=== PATIENT | female | born 1985 | race Caucasian/White ===

== ENCOUNTER 2017-08-02 05:32 | Day surgery (SDC) | payer OTHER ==
[~2017-08-02] VITALS: Ht 167.6 cm; Wt 60.3 kg
[2017-08-02] MEDS ORDERED: CLINDAMYCIN 600 MG in DEXTROSE 5% 50 ML IV SCH (07:04)
[2017-08-02] MEDS ORDERED: BUPIVACAINE-MPF 0.25% 30 ML VIAL INJ ONE (07:12)
[2017-08-02] MEDS ORDERED: DESFLURANE 240 ML BTL INH ONE (07:18)
[2017-08-02] MEDS ORDERED: ONDANSETRON 4 MG/2 ML VIAL IVP ONE (07:18)
[2017-08-02] MEDS ORDERED: PROPOFOL 200 MG/20 ML VIAL IV ONE (07:18)
[2017-08-02] MEDS ORDERED: ROCURONIUM 50 MG/5 ML VIAL IV ONE (07:18)
[2017-08-02] MEDS ORDERED: KETOROLAC 30 MG/ML VIAL IVP ONE (07:18)
[2017-08-02] MEDS ORDERED: SUCCINYLCHOLINE CHLORIDE 200 MG/10 ML VIAL IV ONE (07:18)
[2017-08-02] MEDS ORDERED: NEOSTIGMINE 1:1000 10 MG/10 ML VIAL IM ONE (07:18)
[2017-08-02] MEDS ORDERED: GLYCOPYRROLATE 0.2 MG/ML VIAL IV ONE (07:18)
[2017-08-02] MEDS ORDERED: DEXAMETHASONE 4 MG/ML VIAL IVP ONE (07:18)
[2017-08-02] MEDS ORDERED: LIDOCAINE 2% 100 MG/5 ML SYR IVP ONE (07:18)
[2017-08-02] MEDS ORDERED: MIDAZOLAM 2 MG/2 ML VIAL ONE (07:24)
[2017-08-02] MEDS ORDERED: fentaNYL 0.05 MG/ML VIAL ONE (07:25)
[2017-08-02] MEDS ORDERED: CLINDAMYCIN 900 MG/6 ML VIAL IV ONE (07:38)
[2017-08-02] MEDS ORDERED: MORPHINE SULFATE 4 MG/ML SYR IM/IVP PRN (07:40)
[2017-08-02] MEDS ORDERED: ACETAMINOPHEN/CODEINE 300/30MG 1 TAB PO PRN (07:40)
[2017-08-02] MEDS ORDERED: IBUPROFEN 800 MG TAB PO PRN (07:40)
[2017-08-02] MEDS ORDERED: ONDANSETRON 4 MG/2 ML VIAL IVP PRN ×2 (07:40→08:00)
[2017-08-02] MEDS: HYDROmorphone PFS 2 MG/ML SYR IVP PRN ×4 (08:25→08:55)
[2017-08-02] MEDS ORDERED: HYDROmorphone PFS 2 MG/ML SYR ONE (08:34)
== END 2017-08-02 11:27 | disposition home or self-care (01) ==
LOC: MDS 05:32 → MMU 06:03 → MDS 11:27
PROVIDERS: ATTEND Obstetrics & Gynecology
DX: N83.202 Unspecified ovarian cyst, left side (principal); G89.29 Other chronic pain; I12.9 Hypertensive chronic kidney disease with stage 1 through stage 4 chronic kidney disease, or unspecified chronic kidney disease; N18.9 Chronic kidney disease, unspecified; E11.22 Type 2 diabetes mellitus with diabetic chronic kidney disease; D64.9 Anemia, unspecified; J45.909 Unspecified asthma, uncomplicated; F17.210 Nicotine dependence, cigarettes, uncomplicated; K21.9 Gastro-esophageal reflux disease without esophagitis; G40.909 Epilepsy, unspecified, not intractable, without status epilepticus; Z98.890 Other specified postprocedural states; Z88.0 Allergy status to penicillin; Z79.899 Other long term (current) drug therapy
CPT/HCPCS: 58662; 82374; J0330; J1100; J1170; J1885; J2001; J2250; J2405; J2704; J2710; J3010; J3490; J7120; J7060

== ENCOUNTER 2021-01-19 02:24 | Emergency (ER) | payer OTHER ==
[~2021-01-19] VITALS: Ht 165.1 cm; Wt 62.6 kg
[2021-01-19 02:28] VITALS: BP 112/69
--- NOTE | 2021-01-19 02:28 | NUR ---
PT BIB SELF FOR C/O LEFT FLANK PAIN THAT STARTED YESTERDAY UPON WAKING AT 0900. PT REPORTS + BURNING AND FREQUENCY WITH URINATION. DENIES N/V/D, CP OR SOB. DENIES BLOOD IN URINE. MED HX: DENIES ALLERGIES: PENICILLINS
--- NOTE | 2021-01-19 02:35 | NUR ---
PT AMBULATED TO RESTROOM WITH STEADY AND EVEN GAIT.
--- NOTE | 2021-01-19 02:45 | NUR ---
PT UNABLE TO PROVIDE URINE SAMPLE AT THIS TIME. PT AMBULATED TO BED 09. PROVIDED CUP OF WATER.
--- NOTE | 2021-01-19 03:33 | NUR ---
pt is in restroom.
--- NOTE | 2021-01-19 03:40 | NUR ---
PT AMBULATED BACK TO BED FROM WITH STEADY GAIT. URINE COLLECTED.
[2021-01-19 03:51] LABS: APPEARANCE,URINE CLOUDY (CLEAR); BILIRUBIN,URINE NEGATIVE (NEGATIVE); BLOOD, URINE 3+ (NEGATIVE); COLOR,URINE YELLOW (YELLOW); LEUKOCYTE ESTERASE ,URINE 2+ (NEGATIVE); NITRITE, URINE NEGATIVE (NEGATIVE); UGLUCOSE NEGATIVE (NEGATIVE)
[2021-01-19] MEDS ORDERED: cephALEXin 500 MG CAP PO ONE (04:15)
[2021-01-19] MEDS ORDERED: CIPR500T9 PO (04:20)
[2021-01-19] MEDS ORDERED: CIPROFLOXACIN 250 MG TAB PO ONE (04:20)
[2021-01-19] MEDS ORDERED: IBUP-2218 PO (04:21)
[2021-01-19] MEDS ORDERED: IBUPROFEN 800 MG TAB ONE (04:24)
[2021-01-19] MEDS ORDERED: IBUPROFEN 800 MG TAB PO ONE (04:25)
[2021-01-19 04:33] VITALS: BP 112/69
--- NOTE | 2021-01-19 04:33 | NUR ---
Patient discharged with v/s stable. Written and verbal after care instructions given and explained. Patient alert, oriented and verbalized understanding of instructions. Ambulatory with steady gait. All questions addressed prior to discharge. ID band removed. Patient advised to follow up with PMD. Rx of cipro and ibuprofen given. Patient educated on indication of medication including possible reaction and side effects. Opportunity to ask questions provided and answered.
[2021-01-19 04:46] LABS: RBC,URINE 0-5 /HPF (0-5); WBC,URINE TOO MANY TO COUNT /HPF (0-5)
== END 2021-01-19 04:33 | disposition home or self-care (01) ==
LOC: MED 02:24
DX: N12 Tubulo-interstitial nephritis, not specified as acute or chronic (principal); Z88.0 Allergy status to penicillin
CPT/HCPCS: 81001; 81025; 87086; 99283